=== PATIENT | female | born 1935 | race Caucasian/White ===

== ENCOUNTER 2017-01-09 18:08 | Observation (INO) ==
--- NOTE | 2017-01-09 18:49 | Emergency Department Note ---
Disposition Clinical Impression: UTI (urinary tract infection), Dysuria, Hypokalemia, Gout Disposition: Admitted As Inpatient Condition: Fair Time of Disposition: 00:44 ([facility]) Fever HPI - General Chief Complaint: ED Fever Stated Complaint: fever, poor appetite, body aches Time Seen by Provider: 01/09/17 18:27 Source: patient Mode of arrival: ambulatory Limitations: no limitations Nursing Notes Reviewed: Yes Vital Signs Reviewed: Yes - History of Present Illness HPI Narrative: 81-year-old female presenting to the emergency room with a multitude of complaints one being right arm pain says she is not sure what is numb tingling denies that it anything she does makes it better if condition is worse patient has any weakness patient states that she has had no swelling or edema patient states that she has had no history of gout in the arm but she has had a history of gout previously [place] patient's complaining of burning urgency frequency patient is complaining of generalized [place] fever chills aches all over no energy charley horses denies though numbness tingling she has had some vomiting she has had no additional complaints of complete review of systems Pt Subjective Complaint: fever, weakness Onset (ago): day(s) Maximum Temperature Reported: 102 F Temperature Source: oral Associated symptoms: Reports: abdominal pain, nausea, vomiting, dysuria, altered mental status. Denies: chills, rigors, myalgias, headache, rhinorrhea, nasal congestion, sore throat, stiff neck, cough, chest pain, dyspnea, diarrhea , rash, night sweats, weight loss Improves with: nothing Worsens with: nothing - Related Data Home Medications Medication Instructions Recorded Confirmed Levothyroxine [Synthroid] 75 mcg PO DAILY 01/29/15 01/09/17 Omeprazole [PriLOSEC] 20 mg PO DAILY 01/29/15 01/09/17 Potassium Chloride 10 meq PO DAILY 01/29/15 01/09/17 amLODIPine [Norvasc] 5 mg PO DAILY 12/07/15 01/09/17 Loratadine [Claritin] 10 mg PO DAILY 07/19/16 01/09/17 Metoprolol XL (24 HR) Succ [Toprol 50 mg PO DAILY 07/19/16 01/09/17 Xl] Budesonide/Formoterol 160/4.5 2 puff IH BID 09/17/16 01/09/17 [Symbicort 160/4.5] Bumetanide [Bumex] 0.5 mg PO DAILY 09/17/16 01/09/17 Oxygen 2 l .ROUTE AD 09/17/16 01/09/17 Previous Rx's Medication Instructions Recorded Colchicine [Colcrys] 0.6 mg PO BID #60 tablet 09/20/16 Cyclobenzaprine HCl 5 mg PO BID PRN #30 tablet 10/18/16 Acetaminophen w/Cod 300-30 mg 1 tab PO Q6HR PRN #56 tablet 12/05/16 [Tylenol w/Codeine #3] predniSONE [PredniSONE] 5 mg PO DAILY #30 tablet 12/05/16 Allergies Allergy/AdvReac Type Severity Reaction Status Date / Time hydrocodone Allergy Mild Nausea Verified 01/09/17 18:10 Oxycodone Allergy Mild Nausea Verified 01/09/17 18:10 Sulfa (Sulfonamide Allergy Mild Hives Verified 01/09/17 18:10 Antibiotics) aspirin AdvReac See Verified 01/09/17 18:10 Comments All systems ED: reviewed and negative except as stated. Review of Systems: As Per HPI Constitutional: Reports: fever, chills, weakness Eyes: Denies: eye pain, eye discharge ENT ED: Denies: ear pain, dysphagia Cardiovascular: Reports: syncope (near). Denies: chest pain, palpitations, dyspnea on exertion Respiratory: Denies: cough, dyspnea, wheezes Gastrointestinal: Reports: nausea, vomiting. Denies: abdominal pain, diarrhea, constipation Genitourinary: Reports: urgency, dysuria, genital lesions Musculoskeletal: Denies: back pain, neck pain Integumentary: Denies: rash, abrasion Neurological: Reports: weakness, numbness (rue). Denies: headache Psychiatric: Denies: anxiety, depression Endocrine: Reports: fatigue Hematological/Lymphatic: Denies: easy bleeding Allergic/Immunologic: Denies: facial swelling Fever PMH - Past Medical History Medical history: Reports: arthritis, atrial fibrillation, CHF, COPD, coronary artery disease, GERD, hypertension, kidney stones, osteoporosis, thyroid disease Surgical history: Reports: angioplasty/stent, cholecystectomy, hysterectomy, other Psychiatric history: Reports: no psych history - Social History Smoking Status: Former smoker Alcohol use: Reports: none Drug use: Reports: none Physical Exam - General Limitations: no limitations General appearance: alert, in no apparent distress, anxious - Head Head exam: atraumatic, normocephalic, normal inspection - Eye Eye exam: Present: normal appearance, PERRL, EOMI - ENT ENT exam: normal exam, normal oropharynx, mucous membranes moist, TM's normal bilaterally, normal external ear exam - Neck Neck exam: Present: normal inspection, full ROM, trachea midline - Chest Chest inspection: Present: normal inspection, symmetric chest wall rise - Respiratory Respiratory exam: Present: normal lung sounds bilaterally - Cardiovascular Cardiovascular exam: Present: regular rate, normal rhythm, normal heart sounds - Abdominal Exam Abdominal exam: Present: soft, Non-Tender, normal bowel sounds. Absent: mass, pulsatile mass - Expanded Upper Extremity Exam Shoulder exam: Present: normal inspection, full ROM Arm exam: Present: normal inspection, full ROM Elbow exam: Present: normal inspection, full ROM Forearm/Wrist exam: Present: normal inspection, full ROM Hand exam: Present: normal inspection, full ROM Vascular exam: Normal: capillary refill, radial pulse - Expanded Lower Extremity Exam Hip/Pelvis exam: Present: normal inspection, full ROM, other (Full range of motion of the right shoulder and biceps triceps region but no crepitance there is no deformity no grinding noted) Upper leg exam: Present: normal inspection, full ROM Knee exam: Present: normal inspection, full ROM Lower leg exam: Present: normal inspection, full ROM Ankle exam: Present: normal inspection, full ROM Foot/toe exam: Present: normal inspection, full ROM Neurovascular/Tendon exam: Absent: motor deficit, sensory deficit, tendon deficit Course Course Narrative: Seen and examined laboratory data started x-rays and urinalysis obtained patient is been advised of signs and symptoms what were looking for once results are back we will go from there [place] patient is resting comfortably at this time - Reevaluation(s) Reevaluation #1: The patient's labs she does have an elevated lactic acid but she is not showing any end organ damage or in some respiratory failure greater increasing creatinine are platelet counts though the patient does have elevated temp and Sirs criteria 1 Sirs and 1 organ dysfunction based on the lactic acid itself patient was not showing any evidence of septic shock though blood cultures and antibodies were started and she was given 30 ML's per kilo of normal saline and a repeat act lactic acid level was performed within 6 hours from the original A she was admitted as a result of the urine and urinary tract infection and the hypokalemia transferred to [facility] Vital Signs Temperature 101 F H 01/09/17 18:11 Pulse Rate 85 01/09/17 18:11 Respiratory Rate 18 01/09/17 18:11 Blood Pressure 152/93 01/09/17 18:11 O2 Sat by Pulse Oximetry 96 01/09/17 18:11 Temperature 97.0 F L 01/09/17 23:55 Pulse Rate 84 01/09/17 23:11 Respiratory Rate 19 01/10/17 00:15 Blood Pressure 0/0 01/10/17 00:15 O2 Sat by Pulse Oximetry 96 01/09/17 23:11 Oxygen Delivery Oxygen Delivery Room Air Fever - Differential Diagnosis Likely: fever of occult origin, community acquired pneumonia, viral infection, sepsis - Medical Records Medical records reviewed: Yes I reviewed the patient's medical records. - Lab Data Lab results reviewed: Yes I reviewed the patient's lab results. Result diagrams: 01/09/17 18:50 01/09/17 18:50 Lab Results 01/09/17 01/09/17 01/09/17 Range/Units 18:50 18:50 18:50 WBC 10.8 (4.3-11.1) K/mcL RBC 5.50 H (3.82-4.97) M/mcL Hgb 16.4 H (11.5-15.4) g/dL Hct 46.5 H (35.3-44.9) % MCV 84.5 (83.0-100.0) fL MCH 29.8 (28.0-33.3) pg MCHC 35.3 (31.6-35.5) g/dL RDW 13.8 (11.5-14.5) % Plt Count 121 L (140-400) K/mcL MPV 13.9 H (9.4-12.4) fL Immature Gran % 0.3 (0-4) % Seg Neutrophils % 71.2 % Lymphocytes % 17.2 % Monocytes % 9.9 % Eosinophils % 0.5 % Basophils % 0.9 % Neutrophils # 7.7 (1.6-8.9) K/mcL Lymphocytes # 1.9 (0.6-4.6) K/mcL Monocytes # 1.1 (0.0-1.3) K/mcL Eosinophils # 0.1 (0.0-0.6) K/mcL Basophils # 0.1 (0.0-0.2) K/mcL PT 13.3 H (9.4-12.1) Seconds INR 1.2 APTT 30.0 (26.0-36.0) Seconds VBG Lactic Acid (0.5-2.2) mmol/L Sodium 142 (136-145) mEq/L Potassium 2.5 L* (3.5-4.5) mEq/L Chloride 100 (98-109) mEq/L Carbon Dioxide 25 (19-29) mEq/L BUN 17 (7-20) mg/dL Creatinine 0.93 (0.57-1.11) mg/dL Est GFR ( Amer) > 60 (> 60) Est GFR (Non-Af Amer) 58 L (> 60) BUN/Creatinine Ratio 18 (6-26) Glucose 126 H (70-99) mg/dL Calculated Osmolality 297 (280-300) Uric Acid (2.6-6.0) mg/dL Calcium 10.8 (8.6-10.8) mg/dL Total Bilirubin 1.7 H (0.2-1.2) mg/dL AST 30 (5-34) Units/L ALT 21 (0-55) Units/L Alkaline Phosphatase 111 (38-126) Units/L Troponin I (0-0.03) ng/mL Serum Total Protein 7.8 (6.0-8.3) g/dL Albumin 4.3 (3.5-5.0) g/dL Globulin 3.5 (2.4-3.5) g/dL Albumin/Globulin Ratio 1.2 (1.1-2.2) Urine Color (Yellow) Urine Clarity (Clear) Urine pH (5.0-8.0) pH Units Ur Specific Sherman (1.010-1.025) Urine Protein (Neg-Trace) mg/dL Urine Glucose (UA) (Normal) mg/dL Urine Ketones (Negative) mg/dL Urine Blood (Negative) Urine Nitrite (Negative) Urine Bilirubin (Negative) Urine Urobilinogen (Normal) mg/dL Ur Leukocyte Esterase (Negative) Urine Microscopic WBC (0-3) per hpf Ur Squamous Epith Cells (None-Few) per lpf Ur Culture Indicated? (NO) 01/09/17 01/09/17 01/09/17 Range/Units 18:50 18:50 18:50 WBC (4.3-11.1) K/mcL RBC (3.82-4.97) M/mcL Hgb (11.5-15.4) g/dL Hct (35.3-44.9) % MCV (83.0-100.0) fL MCH (28.0-33.3) pg MCHC (31.6-35.5) g/dL RDW (11.5-14.5) % Plt Count (140-400) K/mcL MPV (9.4-12.4) fL Immature Gran % (0-4) % Seg Neutrophils % % Lymphocytes % % Monocytes % % Eosinophils % % Basophils % % Neutrophils # (1.6-8.9) K/mcL Lymphocytes # (0.6-4.6) K/mcL Monocytes # (0.0-1.3) K/mcL Eosinophils # (0.0-0.6) K/mcL Basophils # (0.0-0.2) K/mcL PT (9.4-12.1) Seconds INR APTT (26.0-36.0) Seconds VBG Lactic Acid 2.9 H (0.5-2.2) mmol/L Sodium (136-145) mEq/L Potassium (3.5-4.5) mEq/L Chloride (98-109) mEq/L Carbon Dioxide (19-29) mEq/L BUN (7-20) mg/dL Creatinine (0.57-1.11) mg/dL Est GFR ( Amer) (> 60) Est GFR (Non-Af Amer) (> 60) BUN/Creatinine Ratio (6-26) Glucose (70-99) mg/dL Calculated Osmolality (280-300) Uric Acid 10.1 H (2.6-6.0) mg/dL Calcium (8.6-10.8) mg/dL Total Bilirubin (0.2-1.2) mg/dL AST (5-34) Units/L ALT (0-55) Units/L Alkaline Phosphatase (38-126) Units/L Troponin I 0.01 (0-0.03) ng/mL Serum Total Protein (6.0-8.3) g/dL Albumin (3.5-5.0) g/dL Globulin (2.4-3.5) g/dL Albumin/Globulin Ratio (1.1-2.2) Urine Color (Yellow) Urine Clarity (Clear) Urine pH (5.0-8.0) pH Units Ur Specific Sherman (1.010-1.025) Urine Protein (Neg-Trace) mg/dL Urine Glucose (UA) (Normal) mg/dL Urine Ketones (Negative) mg/dL Urine Blood (Negative) Urine Nitrite (Negative) Urine Bilirubin (Negative) Urine Urobilinogen (Normal) mg/dL Ur Leukocyte Esterase (Negative) Urine Microscopic WBC (0-3) per hpf Ur Squamous Epith Cells (None-Few) per lpf Ur Culture Indicated? (NO) 01/09/17 01/09/17 Range/Units 22:00 23:56 WBC (4.3-11.1) K/mcL RBC (3.82-4.97) M/mcL Hgb (11.5-15.4) g/dL Hct (35.3-44.9) % MCV (83.0-100.0) fL MCH (28.0-33.3) pg MCHC (31.6-35.5) g/dL RDW (11.5-14.5) % Plt Count (140-400) K/mcL MPV (9.4-12.4) fL Immature Gran % (0-4) % Seg Neutrophils % % Lymphocytes % % Monocytes % % Eosinophils % % Basophils % % Neutrophils # (1.6-8.9) K/mcL Lymphocytes # (0.6-4.6) K/mcL Monocytes # (0.0-1.3) K/mcL Eosinophils # (0.0-0.6) K/mcL Basophils # (0.0-0.2) K/mcL PT (9.4-12.1) Seconds INR APTT (26.0-36.0) Seconds VBG Lactic Acid 1.5 (0.5-2.2) mmol/L Sodium (136-145) mEq/L Potassium (3.5-4.5) mEq/L Chloride (98-109) mEq/L Carbon Dioxide (19-29) mEq/L BUN (7-20) mg/dL Creatinine (0.57-1.11) mg/dL Est GFR ( Amer) (> 60) Est GFR (Non-Af Amer) (> 60) BUN/Creatinine Ratio (6-26) Glucose (70-99) mg/dL Calculated Osmolality (280-300) Uric Acid (2.6-6.0) mg/dL Calcium (8.6-10.8) mg/dL Total Bilirubin (0.2-1.2) mg/dL AST (5-34) Units/L ALT (0-55) Units/L Alkaline Phosphatase (38-126) Units/L Troponin I (0-0.03) ng/mL Serum Total Protein (6.0-8.3) g/dL Albumin (3.5-5.0) g/dL Globulin (2.4-3.5) g/dL Albumin/Globulin Ratio (1.1-2.2) Urine Color Yellow (Yellow) Urine Clarity Clear (Clear) Urine pH 5.5 (5.0-8.0) pH Units Ur Specific Sherman 1.020 (1.010-1.025) Urine Protein 100 H (Neg-Trace) mg/dL Urine Glucose (UA) Normal (Normal) mg/dL Urine Ketones Negative (Negative) mg/dL Urine Blood Trace-lysed H (Negative) Urine Nitrite Negative (Negative) Urine Bilirubin Negative (Negative) Urine Urobilinogen Normal (Normal) mg/dL Ur Leukocyte Esterase Small H (Negative) Urine Microscopic WBC 30-50 H (0-3) per hpf Ur Squamous Epith Cells Few (None-Few) per lpf Ur Culture Indicated? YES A (NO) - Radiology Data Radiology results reviewed: Yes I reviewed the patient's radiology results. ITS Impressions Chest X-Ray 01/09/17 18:38 IMPRESSION: No acute process. D/ / Lucas Sinclair MD / Lucas Sinclair MD Interpreting Provider: Lucas Sinclair MD - EKG Data EKG attestation: Yes I reviewed and interpreted this EKG. EKG results narrative: Paced rate 80 for IN-2 22 QRS 185 QT 461 excess -71 Critical Care Time Critical Care Time: Yes Total Critical Care Time: 35 Attestation: Critical care performed: V5 minutes as result of the patient having the hypokalemia and also the patient showing borderline sepsis not evidence of septic shock patient resting comfortably with IV fluids daughter are in agreement with the patient being maintained to have potassium supplementation as well as IV antibiotics to prevent further potential presentation of sepsis Time is exclusive of separately billable procedures. Time includes: direct patient care, patient reassessment, coordination of patient care, interpretation of data (laboratory data, radiology data, and respiratory data), review of patient's medical records, medical consultation and documentation of patient care. Procedures included in critical care time: Procedures excluded from critical care time:
[2017-01-09 19:33] LABS: Basophils # 0.1 K/mcL (0.0-0.2); Basophils % 0.9 %; Eosinophils # 0.1 K/mcL (0.0-0.6); Eosinophils % 0.5 %; Hematocrit 46.5 % (35.3-44.9); Hemoglobin 16.4 g/dL (11.5-15.4); INR 1.2; Immature Granulocytes % 0.3 % (0-4); Lymphocytes # 1.9 K/mcL (0.6-4.6); Lymphocytes % 17.2 %; Mean Corpuscular HGB Conc 35.3 g/dL (31.6-35.5); Mean Corpuscular Hemoglobin 29.8 pg (28.0-33.3); Mean Corpuscular Volume 84.5 fL (83.0-100.0); Mean Platelet Volume 13.9 fL (9.4-12.4); Monocytes # 1.1 K/mcL (0.0-1.3); Monocytes % 9.9 %; Neutrophils # 7.7 K/mcL (1.6-8.9); Platelet Count 121 K/mcL (140-400); Prothrombin Time 13.3 Seconds (9.4-12.1); Red Cell Distribution Width 13.8 % (11.5-14.5); Segmented Neutrophils % 71.2 %
[2017-01-09 19:44] LABS: Alanine Aminotransferase 21 Units/L (0-55); Albumin 4.3 g/dL (3.5-5.0); Albumin/Globulin Ratio 1.2 (1.1-2.2); Alkaline Phosphatase 111 Units/L (38-126); Aspartate Amino Transferase 30 Units/L (5-34); BUN/Creatinine Ratio 18 (6-26); Bilirubin,Total 1.7 mg/dL (0.2-1.2); Blood Urea Nitrogen 17 mg/dL (7-20); Calcium 10.8 mg/dL (8.6-10.8); Carbon Dioxide 25 mEq/L (19-29); Chloride 100 mEq/L (98-109); Globulin 3.5 g/dL (2.4-3.5); Glucose 126 mg/dL (70-99); Osmolality,Calculated 297 (280-300); Sodium 142 mEq/L (136-145); Total Protein 7.8 g/dL (6.0-8.3); eGFR For African Americans > 60 (> 60); eGFR For Non-African Americans 58 (> 60)
[2017-01-09 19:48] LABS: Potassium 2.5 mEq/L (3.5-4.5)
[2017-01-09] MEDS ORDERED: 0.9 % Sodium Chloride 1,000 ML IVC ONE ×2 (20:20→20:49)
[2017-01-09 22:34] LABS: Bilirubin,Urine Negative (Negative); Blood,Urine Trace-lysed (Negative); Clarity,Urine Clear (Clear); Color,Urine Yellow (Yellow); Glucose,Urine (UA) Normal (Normal); Ketones,Urine Negative (Negative); Leukocyte Esterase,Urine Small (Negative); Nitrite,Urine Negative (Negative); PH,Urine 5.5 pH Units (5.0-8.0); Protein,Urine 100 mg/dL (Neg-Trace); Urobilinogen,Urine Normal (Normal)
[2017-01-09 22:41] LABS: Squamous Epithelial Cell,Urine Few per lpf (None-Few); WBC,Urine 30-50 per hpf (0-3)
[2017-01-10] MEDS ORDERED: NON-FORMULARY MEDICATION 1 EACH EACH (Oxygen [Oxygen] 2 L) SCH (00:29)
[2017-01-10] MEDS ORDERED: Naloxone 0.4 MG/ML INJ IVP PRN (00:29)
[2017-01-10] MEDS ORDERED: *HR* Acetaminophen w/Cod 300-30 mg 1 TAB TABLET PO PRN (00:29)
[2017-01-10 07:28] LABS: Basophils # 0.1 K/mcL (0.0-0.2); Basophils % 1.1 %; Eosinophils # 0.1 K/mcL (0.0-0.6); Eosinophils % 1.1 %; Hematocrit 41.9 % (35.3-44.9); Hemoglobin 14.7 g/dL (11.5-15.4); Immature Granulocytes % 0.2 % (0-4); Lymphocytes # 2.1 K/mcL (0.6-4.6); Lymphocytes % 32.6 %; Mean Corpuscular HGB Conc 35.1 g/dL (31.6-35.5); Mean Corpuscular Hemoglobin 29.7 pg (28.0-33.3); Mean Corpuscular Volume 84.6 fL (83.0-100.0); Mean Platelet Volume 12.6 fL (9.4-12.4); Monocytes # 0.7 K/mcL (0.0-1.3); Monocytes % 10.7 %; Neutrophils # 3.4 K/mcL (1.6-8.9); Red Blood Count 4.95 M/mcL (3.82-4.97); Red Cell Distribution Width 13.7 % (11.5-14.5); Segmented Neutrophils % 54.3 %
[2017-01-10 07:33] LABS: Platelet Count 81 K/mcL (140-400)
[2017-01-10 07:34] LABS: BUN/Creatinine Ratio 15 (6-26); Blood Urea Nitrogen 10 mg/dL (7-20); Calcium 9.5 mg/dL (8.6-10.8); Carbon Dioxide 24 mEq/L (19-29); Chloride 104 mEq/L (98-109); Glucose 103 mg/dL (70-99); Osmolality,Calculated 293 (280-300); Potassium 2.8 mEq/L (3.5-4.5); Sodium 142 mEq/L (136-145); eGFR For African Americans > 60 (> 60); eGFR For Non-African Americans > 60 (> 60)
[2017-01-10 07:50] LABS: Activated Partial Thrombo Time 29.1 Seconds (26.0-36.0)
[2017-01-10 08:23] LABS: INR 1.3
[2017-01-10] MEDS: predniSONE 5 MG TABLET PO SCH ×2 (08:27→08:28)
[2017-01-10] MEDS: Colchicine 0.6 MG TABLET PO SCH ×2 (08:27→21:07)
[2017-01-10] MEDS: Loratadine 10 MG TABLET PO SCH (08:27)
[2017-01-10] MEDS: Metoprolol XL (24 HR) Succ 50 MG TAB.ER.24H PO SCH (08:29)
[2017-01-10] MEDS ORDERED: Bumetanide 1 MG TABLET PO SCH (09:00)
[2017-01-10] MEDS: amLODIPine 5 MG TABLET PO SCH (10:10)
[2017-01-10] MEDS ORDERED: Potassium Chloride 20 MEQ, Lidocaine 1% 2 ML in D5% in Water 250 ML IVPB ONE (10:16)
[2017-01-10] MEDS: Budesonide/Formoterol 160/4.5 MDI IH SCH ×2 (10:47→22:27)
--- NOTE | 2017-01-10 14:05 | Electrocardiograph Report ---
[address] [address] Test Date: 2017-01-09 Pat Name: Minal Deleon Department: [id number] Room: [facility] Gender: F [employer]: [id number] : 1935 Requested By: Carina Cohen Order Number: [id number] Reading MD: Dickson Castro MD Measurements Intervals [place] Rate: 84 P: 164 AR: 222 QRS: -71 QRSD: 185 T: 105 QT: 461 QTc: 502 Interpretive Statements ELECTRONIC VENTRICULAR PACEMAKER Electronically Signed On 01-10-2017 14:03:29 EDT by Dickson Castro MD
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
[2017-01-10 16:33] LABS: BUN/Creatinine Ratio 15 (6-26); Blood Urea Nitrogen 12 mg/dL (7-20); Calcium 9.9 mg/dL (8.6-10.8); Carbon Dioxide 23 mEq/L (19-29); Chloride 104 mEq/L (98-109); Glucose 118 mg/dL (70-99); Magnesium 1.7 mg/dL (1.6-2.6); Osmolality,Calculated 291 (280-300); Potassium 3.3 mEq/L (3.5-4.5); Sodium 140 mEq/L (136-145); eGFR For African Americans > 60 (> 60); eGFR For Non-African Americans > 60 (> 60)
[2017-01-10] MEDS: 0.45 % Sodium Chloride w/KCl 20 MEQ/1,000 ML MLS IVC SCH (18:20)
[2017-01-10] MEDS: Lactobacillus 1 EACH CAP.SPRINK PO SCH (21:07)
[2017-01-11] MEDS: 0.45 % Sodium Chloride w/KCl 20 MEQ/1,000 ML MLS IVC SCH (03:05)
[2017-01-11 06:16] LABS: Basophils # 0.1 K/mcL (0.0-0.2); Basophils % 1.3 %; Eosinophils # 0.1 K/mcL (0.0-0.6); Eosinophils % 1.6 %; Hematocrit 41.7 % (35.3-44.9); Hemoglobin 14.3 g/dL (11.5-15.4); Immature Granulocytes % 0.3 % (0-4); Lymphocytes # 2.3 K/mcL (0.6-4.6); Lymphocytes % 30.1 %; Mean Corpuscular HGB Conc 34.3 g/dL (31.6-35.5); Mean Corpuscular Hemoglobin 29.4 pg (28.0-33.3); Mean Corpuscular Volume 85.8 fL (83.0-100.0); Mean Platelet Volume 12.7 fL (9.4-12.4); Monocytes # 0.8 K/mcL (0.0-1.3); Neutrophils # 4.4 K/mcL (1.6-8.9); Platelet Count 107 K/mcL (140-400); Red Blood Count 4.86 M/mcL (3.82-4.97); Red Cell Distribution Width 13.9 % (11.5-14.5); Segmented Neutrophils % 56.7 %
[2017-01-11 06:35] LABS: BUN/Creatinine Ratio 15 (6-26); Blood Urea Nitrogen 11 mg/dL (7-20); Calcium 9.7 mg/dL (8.6-10.8); Carbon Dioxide 22 mEq/L (19-29); Chloride 106 mEq/L (98-109); Glucose 116 mg/dL (70-99); Osmolality,Calculated 292 (280-300); Phosphorous 2.5 mg/dL (2.3-4.7); Potassium 3.4 mEq/L (3.5-4.5); Sodium 141 mEq/L (136-145); Uric Acid 7.6 mg/dL (2.6-6.0); eGFR For African Americans > 60 (> 60); eGFR For Non-African Americans > 60 (> 60)
[2017-01-11] MEDS: amLODIPine 5 MG TABLET PO SCH (09:05)
[2017-01-11] MEDS: predniSONE 5 MG TABLET PO SCH (09:06)
[2017-01-11] MEDS: Colchicine 0.6 MG TABLET PO SCH (09:06)
[2017-01-11] MEDS: Loratadine 10 MG TABLET PO SCH (09:06)
[2017-01-11] MEDS: Lactobacillus 1 EACH CAP.SPRINK PO SCH (09:06)
[2017-01-11] MEDS: Metoprolol XL (24 HR) Succ 50 MG TAB.ER.24H PO SCH (09:12)
--- NOTE | 2017-01-11 09:34 | Discharge Summary ---
Date of Encounter: 01/11/17 Time of Encounter: 09:25 - Discharge Diagnosis (1) Vomiting and diarrhea Priority: Primary Status: Acute (2) Hypokalemia Priority: Secondary Status: Acute (3) Gout Priority: Secondary Status: Chronic Qualifiers: Gout site: unspecified site Gout etiology: unspecified cause Chronicity: chronic Presence of tophus: without tophus Qualified Code(s): M1A.9XX0 - Chronic gout, unspecified, without tophus (tophi) (4) UTI (urinary tract infection) Priority: Secondary Status: Acute Qualifiers: Urinary tract infection type: site unspecified Hematuria presence: with hematuria Qualified Code(s): N39.0 - Urinary tract infection, site not specified; R31.9 - Hematuria, unspecified - Discharge Medications Prescriptions: Cefuroxime PO [Ceftin] 500 mg PO Q12HR #2 tablet Lactobacillus [Culturelle] 1 each PO BID #2 cap.sprink Home Medications: Levothyroxine [Synthroid] 75 mcg PO DAILY 01/29/15 [History] Omeprazole [PriLOSEC] 20 mg PO DAILY 01/29/15 [History] Potassium Chloride 10 meq PO DAILY 01/29/15 [History] amLODIPine [Norvasc] 5 mg PO DAILY 12/07/15 [History] Metoprolol XL (24 HR) Succ [Toprol Xl] 50 mg PO DAILY 07/19/16 [History] Budesonide/Formoterol 160/4.5 [Symbicort 160/4.5] 2 puff IH BID 09/17/16 [ History] Oxygen 2 l .ROUTE AD 09/17/16 [History] Colchicine [Colcrys] 0.6 mg PO BID #60 tablet 09/20/16 [Rx] Cyclobenzaprine HCl 5 mg PO BID PRN #30 tablet 10/18/16 [Rx] Acetaminophen w/Cod 300-30 mg [Tylenol w/Codeine #3] 1 tab PO Q6HR PRN #56 tablet 12/05/16 [Rx] predniSONE [PredniSONE] 5 mg PO DAILY #30 tablet 12/05/16 [Rx] Bumetanide [Bumex] 0.5 mg PO Q48H #0 01/11/17 [Rx] Cefuroxime PO [Ceftin] 500 mg PO Q12HR #2 tablet 01/11/17 [Rx] Lactobacillus [Culturelle] 1 each PO BID #2 cap.sprink 01/11/17 [Rx] Loratadine [Claritin] 10 mg PO DAILY PRN #0 01/11/17 [Rx] Allergies/Adverse Reactions: Allergies hydrocodone Allergy (Mild, Verified 01/09/17 18:10) Nausea Oxycodone Allergy (Mild, Verified 01/09/17 18:10) Nausea Sulfa (Sulfonamide Antibiotics) Allergy (Mild, Verified 01/09/17 18:10) Hives aspirin Adverse Reaction (Verified 01/09/17 18:10) See Comments due to her "blood cells" Date of admission: 01/09/17 23:44 Primary care physician: Casey Ash DO Consults: 01/10/17 00:57 Consult to Nutrition [CONS] Routine Comment: Consulting Provider: NUTRITION Reason for Dietary Consult: MST Score - Patient Status Disposition: Home, Self-Care Condition: Fair Functional capacity at discharge: independent ambulation Overall status at discharge: patient is progressing back to baseline - Discharge Instructions Follow Up With: Casey Ash DO [Primary Care Provider] - - Diet and Activity Activity: resume usual activities as tolerated Diet: advance to your usual diet Hospital course: Ms. Deleon is a 81 year old female who came to the emergency room stating she had onset of diarrhea with weakness approximately 3 weeks ago. She later developed nausea with occasional dry heaves. The nausea became more severe the day of admission so she decided come to emergency room for evaluation. She was found to have hypokalemia and probable UTI. She was admitted to [facility] floor for ongoing care needs. Initial orders were written by the emergency room physician. I saw her on January 10 and performed a history and physical. She was started empirically on Rocephin for UTI. She remained afebrile after the first hospital day. WBC decreased to 7.7 with no left shift by the day of discharge. She will continue with Ceftin and Lactobacillus for 1 additional day upon discharge. Supplemental potassium was given and potassium level improved to 3.4 on the day of discharge. She will decrease Bumex to 0.5 mg every other day and continue KCl 10 mg daily upon discharge. Her creatinine decreased to 0.73 with estimated GFR greater than 60. She will decrease Bumex dose as per above. Uric acid decreased from 10.1 on the emergency room labs to 7.6 on January 11. I will let her PCP further monitor this and adjust dose of medications as needed. On January 11 she felt improved and stable for discharge home. She will follow with her PCP Dr. Ash within 1 week. - Time Spent with Patient Total time spent providing and/or coordinating discharge services: - Constitutional Vitals: Temp Pulse Resp BP Pulse Ox 98.0 F 88 16 115/54 96 01/10/17 23:10 01/10/17 23:10 01/10/17 23:10 01/10/17 23:10 01/10/17 23:10
[2017-01-11 10:08] VITALS: BP 132/73
[2017-01-11] MEDS: Budesonide/Formoterol 160/4.5 MDI IH SCH (10:22)
== END 2017-01-11 10:41 | disposition home or self-care (01) ==
LOC: INPPIK 18:08 → EMEROOPIK 18:08 → INPPIK 01-10 00:36
PROVIDERS: ADMIT Internal Medicine; ATTEND Internal Medicine

== ENCOUNTER 2017-09-07 12:04 | Observation (INO) ==
--- NOTE | 2017-09-07 12:09 | Emergency Department Note ---
Disposition Clinical Impression: COPD exacerbation, Bronchitis Disposition: Admitted As Inpatient Condition: Fair Referrals: Casey Ash DO [Primary Care Provider] - Forms: ED Satisfaction Letter Time of Disposition: 14:08 SOB HPI - General Chief Complaint: ED Upper Respiratory Infection Stated Complaint: COUGH, FEVER, CHEST SORENESS Time Seen by Provider: 09/07/17 12:09 Source: patient, family Mode of arrival: ambulatory Limitations: no limitations Nursing Notes Reviewed: Yes Vital Signs Reviewed: Yes - History of Present Illness This is an 82-year-old female who presents today with stating she does not feel off the last 5 days. She has had a cough runny nose fever and chest tightness. She states that she does have a history of COPD but does not use her inhalers or her oxygen like she is supposed to. She states she does not vaccinated against the flu or pneumonia. She states that she feels like she is just getting worse at home and so she came in today for evaluation. Pt Subjective Complaint: shortness of breath, cough - Related Data Home Medications Medication Instructions Recorded Confirmed Levothyroxine [Synthroid] 75 mcg PO DAILY 01/29/15 09/07/17 Omeprazole [PriLOSEC] 20 mg PO DAILY PRN 01/29/15 09/07/17 Potassium Chloride 10 meq PO BID 01/29/15 09/07/17 amLODIPine [Norvasc] 10 mg PO DAILY 12/07/15 09/07/17 Metoprolol XL (24 HR) Succ [Toprol 50 mg PO BID 07/19/16 09/07/17 Xl] Budesonide/Formoterol 160/4.5 2 puff IH BID 09/17/16 09/07/17 [Symbicort 160/4.5] Oxygen 2 l .ROUTE AD 09/17/16 09/07/17 Previous Rx's Medication Instructions Recorded Cyclobenzaprine HCl 5 mg PO BID PRN #30 tablet 10/18/16 Acetaminophen w/Cod 300-30 mg 1 tab PO Q6HR PRN #56 tablet 12/05/16 [Tylenol w/Codeine #3] Bumetanide [Bumex] 0.5 mg PO Q48H #0 01/11/17 Loratadine [Claritin] 10 mg PO DAILY PRN #0 01/11/17 Febuxostat [Uloric] 40 mg PO DAILY #30 10/17/17 Eltrombopag Olamine [Promacta] 50 mg PO DAILY #30 tablet 08/03/17 Allergies Allergy/AdvReac Type Severity Reaction Status Date / Time hydrocodone Allergy Mild Nausea Verified 09/07/17 12:05 Oxycodone Allergy Mild Nausea Verified 09/07/17 12:05 Sulfa (Sulfonamide Allergy Mild Hives Verified 09/07/17 12:05 Antibiotics) aspirin AdvReac See Verified 09/07/17 12:05 Comments Review of Systems: ROS reviewed and negative except as per HPI Chart generated with voice recognition software Nursing notes reviewed Old records reviewed Past Medical History - Past Medical History Attestation: Yes The following information was validated with the patient. Source: patient Medical history: Reports: arthritis, atrial fibrillation, CHF, COPD, coronary artery disease, GERD, hypertension, kidney stones, osteoporosis, thyroid disease Surgical history: Reports: angioplasty/stent, cholecystectomy, hysterectomy, other Psychiatric history: Reports: no psych history - Social History Smoking Status: Former smoker Smokeless Tobacco Status: No Alcohol use: Reports: none Drug use: Reports: none Physical Exam General: Mild distress VSS Head: normocephalic, atraumatic Eyes: EOMI, PERRLA mouth: Dry mucous membranes Neck: NO CLA, Supple Chest wall: normal rise, no crepitus, no deformity noted Lungs: Diminished coarse breath sounds bilaterally Heart: RRR, no murmur Abd: soft, nontender, BS normal : deferred MSK: strength equal in all four extremities Ext: moves all four extremities, no obvious deformities Skin: cap refill normal, dry hot to touch neuro : CN2-12 grossly intact, A&Ox3 Psych: normal affect, not anxious Course Vital Signs Temperature 102.6 F H 09/07/17 12:19 Pulse Rate 91 09/07/17 12:19 Respiratory Rate 18 09/07/17 12:19 Blood Pressure 130/84 09/07/17 12:19 O2 Sat by Pulse Oximetry 91 09/07/17 12:19 Temperature 100.0 F H 09/07/17 14:34 Pulse Rate 83 09/07/17 14:34 Respiratory Rate 18 09/07/17 14:34 Blood Pressure 137/52 09/07/17 14:34 O2 Sat by Pulse Oximetry 93 03/23/18 14:34 Oxygen Delivery Oxygen Delivery Nasal Cannula Shortness of Breath/Dyspnea - [facility] Narrative Medical decision making narrative: After initial breathing treatments her lungs sounds improved, and the sense that I can hear more movement, however she continued to sound very coarse and now had some wheezing. Tumor doing nebs were ordered. Patient has a very congested sounding cough. X-ray does not show any definitive pneumonia patient has a COPD history and is very noncompliant at home. She is 91% on room air and when she starts coughing drops into the 80s. She is not 4 to nebs total Solu-Medrol and is requiring 2 L nasal cannula to be at 95% room on the 2 L. I think she would benefit from coming into the hospital. Her flu swab was negative. I talked to her about it she is comfortable coming in. Hospitalist paged for admission [phone] Ku for admission, orders placed. - Medical Records Medical records reviewed: Yes I reviewed the patient's medical records. - Lab Data Lab results reviewed: Yes I reviewed the patient's lab results. Result diagrams: 09/07/17 12:52 09/07/17 12:52 Lab Results 09/07/17 09/07/17 09/07/17 Range/Units 12:52 12:52 12:52 WBC 8.7 (4.3-11.1) K/mcL RBC 5.31 H (3.82-4.97) M/mcL Hgb 15.8 H (11.5-15.4) g/dL Hct 47.8 H (35.3-44.9) % MCV 90.0 (83.0-100.0) fL MCH 29.8 (28.0-33.3) pg MCHC 33.1 (31.6-35.5) g/dL RDW 13.5 (11.5-14.5) % Plt Count 177 (140-400) K/mcL MPV 11.3 (9.4-12.4) fL Immature Gran % 0.2 (0-4) % Seg Neutrophils % 58.0 % Lymphocytes % 26.7 % Monocytes % 14.3 % Eosinophils % 0.2 % Basophils % 0.6 % Neutrophils # 5.1 (1.6-8.9) K/mcL Lymphocytes # 2.3 (0.6-4.6) K/mcL Monocytes # 1.3 (0.0-1.3) K/mcL Eosinophils # 0.0 (0.0-0.6) K/mcL Basophils # 0.1 (0.0-0.2) K/mcL Sodium 140 (136-145) mEq/L Potassium 3.0 L (3.5-5.1) mEq/L Chloride 103 (98-107) mEq/L Carbon Dioxide 27 (23-29) mEq/L BUN 11 (8-23) mg/dL Creatinine 0.90 (0.60-1.20) mg/dL Est GFR ( Amer) > 60 (> 60) Est GFR (Non-Af Amer) > 60 (> 60) BUN/Creatinine Ratio 12 (6-26) Glucose 94 (70-105) mg/dL Calculated Osmolality 289 (280-300) Lactic Acid 1.9 (0.5-2.2) mmol/L Calcium 9.5 (8.6-10.3) mg/dL Magnesium (1.6-2.6) mg/dL 09/07/17 Range/Units 12:52 WBC (4.3-11.1) K/mcL RBC (3.82-4.97) M/mcL Hgb (11.5-15.4) g/dL Hct (35.3-44.9) % MCV (83.0-100.0) fL MCH (28.0-33.3) pg MCHC (31.6-35.5) g/dL RDW (11.5-14.5) % Plt Count (140-400) K/mcL MPV (9.4-12.4) fL Immature Gran % (0-4) % Seg Neutrophils % % Lymphocytes % % Monocytes % % Eosinophils % % Basophils % % Neutrophils # (1.6-8.9) K/mcL Lymphocytes # (0.6-4.6) K/mcL Monocytes # (0.0-1.3) K/mcL Eosinophils # (0.0-0.6) K/mcL Basophils # (0.0-0.2) K/mcL Sodium (136-145) mEq/L Potassium (3.5-5.1) mEq/L Chloride (98-107) mEq/L Carbon Dioxide (23-29) mEq/L BUN (8-23) mg/dL Creatinine (0.60-1.20) mg/dL Est GFR ( Amer) (> 60) Est GFR (Non-Af Amer) (> 60) BUN/Creatinine Ratio (6-26) Glucose (70-105) mg/dL Calculated Osmolality (280-300) Lactic Acid (0.5-2.2) mmol/L Calcium (8.6-10.3) mg/dL Magnesium 1.9 (1.6-2.6) mg/dL - Radiology Data Radiology results reviewed: Yes I reviewed the patient's radiology results. 09/07/2017 12:38 pm COMPARISON: 01/09/2017. HISTORY: ORDERING SYSTEM PROVIDED HISTORY: upper respiratory infection Initial evaluation. FINDINGS: Evaluation is limited due to marked lordotic positioning. The patient's chin obscures evaluation of the right lung apex. The cardiac silhouette is poorly evaluated. There appears to be prominence of the hilar regions bilaterally, which could be artifactual due to positioning. No focal consolidation is otherwise clearly identified. No pleural effusion or pneumothorax. XR/XR chest 1V portable IMPRESSION: 1. Limited evaluation due to patient lordotic positioning. 2. Mild prominence of the hilar regions bilaterally, which could be artifactual due to patient positioning. 3. Otherwise, no convincing acute pulmonary abnormality.
[2017-09-07] MEDS ORDERED: 0.9 % Sodium Chloride 1,000 ML IVC ONE (12:17)
[2017-09-07] MEDS ORDERED: Ipratropium/Albuterol Neb 3 ML IH ONE ×2 (12:17→13:22)
[2017-09-07 12:59] LABS: Basophils # 0.1 K/mcL (0.0-0.2); Basophils % 0.6 %; Eosinophils % 0.2 %; Hematocrit 47.8 % (35.3-44.9); Hemoglobin 15.8 g/dL (11.5-15.4); Immature Granulocytes % 0.2 % (0-4); Lymphocytes # 2.3 K/mcL (0.6-4.6); Lymphocytes % 26.7 %; Mean Corpuscular HGB Conc 33.1 g/dL (31.6-35.5); Mean Corpuscular Hemoglobin 29.8 pg (28.0-33.3); Mean Platelet Volume 11.3 fL (9.4-12.4); Monocytes # 1.3 K/mcL (0.0-1.3); Monocytes % 14.3 %; Neutrophils # 5.1 K/mcL (1.6-8.9); Platelet Count 177 K/mcL (140-400); Red Blood Count 5.31 M/mcL (3.82-4.97); Red Cell Distribution Width 13.5 % (11.5-14.5)
[2017-09-07 13:15] LABS: BUN/Creatinine Ratio 12 (6-26); Blood Urea Nitrogen 11 mg/dL (8-23); Calcium 9.5 mg/dL (8.6-10.3); Carbon Dioxide 27 mEq/L (23-29); Chloride 103 mEq/L (98-107); Glucose 94 mg/dL (70-105); Osmolality,Calculated 289 (280-300); Sodium 140 mEq/L (136-145); eGFR For African Americans > 60 (> 60); eGFR For Non-African Americans > 60 (> 60)
[2017-09-07] MEDS ORDERED: Ipratropium/Albuterol Neb 3 ML ONE ×2 (13:37→15:29)
[2017-09-07] MEDS ORDERED: Azithromycin 500 MG in D5% in Water 250 ML IVPB STA ×2 (14:08→15:29)
[2017-09-07] MEDS ORDERED: Loratadine 10 MG TABLET PO PRN ×2 (14:32→15:29)
[2017-09-07] MEDS ORDERED: *HR* Acetaminophen w/Cod 300-30 mg 1 TAB TABLET PO PRN ×2 (14:32→15:29)
[2017-09-07] MEDS ORDERED: NON-FORMULARY MEDICATION 1 EACH EACH (Oxygen [Oxygen] 2 L) SCH (14:45)
[2017-09-07] MEDS ORDERED: Bumetanide 1 MG TABLET PO SCH (14:45)
[2017-09-07] MEDS ORDERED: Naloxone 0.4 MG/ML INJ IVP PRN (15:29)
[2017-09-07] MEDS: Ipratropium/Albuterol Neb 3 ML IH SCH ×3 (16:34→20:18)
[2017-09-07] MEDS: Budesonide/Formoterol 160/4.5 MDI IH SCH (20:18)
[2017-09-07] MEDS: Metoprolol XL (24 HR) Succ 50 MG TAB.ER.24H PO SCH (20:57)
[2017-09-07] MEDS ORDERED: Metoprolol XL (24 HR) Succ 50 MG TAB.ER.24H PO SCH (21:00)
[2017-09-07] MEDS ORDERED: Budesonide/Formoterol 160/4.5 MDI IH SCH (22:00)
[2017-09-08] MEDS: Ipratropium/Albuterol Neb 3 ML IH SCH ×3 (00:04→09:33)
[2017-09-08 02:05] LABS: Bilirubin,Urine Negative (Negative); Blood,Urine Trace-intact (Negative); Clarity,Urine Clear (Clear); Color,Urine Yellow (Yellow); Glucose,Urine (UA) Normal (Normal); Ketones,Urine Negative (Negative); Leukocyte Esterase,Urine Negative (Negative); Nitrite,Urine Negative (Negative); Protein,Urine 30 mg/dL (Neg-Trace); Urobilinogen,Urine Normal (Normal)
[2017-09-08 02:32] LABS: Granular Casts,Urine Few per lpf (None Seen)
[2017-09-08 02:33] LABS: Hyaline Casts,Urine Few per lpf (None-Few); RBC,Urine 0-3 per hpf (0-3); Squamous Epithelial Cell,Urine Few per lpf (None-Few)
[2017-09-08 02:34] LABS: Bacteria,Urine Moderate per hpf (None-Few)
[2017-09-08 06:27] VITALS: BP 147/75
[2017-09-08 08:08] LABS: Basophils % 0.7 %; Eosinophils % 0.2 %; Hematocrit 42.3 % (35.3-44.9); Hemoglobin 14.1 g/dL (11.5-15.4); Immature Granulocytes % 0.2 % (0-4); Lymphocytes # 0.6 K/mcL (0.6-4.6); Lymphocytes % 9.1 %; Mean Corpuscular HGB Conc 33.3 g/dL (31.6-35.5); Mean Corpuscular Hemoglobin 29.9 pg (28.0-33.3); Mean Corpuscular Volume 89.8 fL (83.0-100.0); Mean Platelet Volume 11.3 fL (9.4-12.4); Monocytes # 0.6 K/mcL (0.0-1.3); Monocytes % 9.4 %; Neutrophils # 4.9 K/mcL (1.6-8.9); Platelet Count 159 K/mcL (140-400); Red Blood Count 4.71 M/mcL (3.82-4.97); Red Cell Distribution Width 13.4 % (11.5-14.5); Segmented Neutrophils % 80.4 %
[2017-09-08 08:19] LABS: BUN/Creatinine Ratio 15 (6-26); Blood Urea Nitrogen 11 mg/dL (8-23); Calcium 8.9 mg/dL (8.6-10.3); Carbon Dioxide 24 mEq/L (23-29); Chloride 105 mEq/L (98-107); Glucose 114 mg/dL (70-105); Osmolality,Calculated 288 (280-300); Potassium 3.7 mEq/L (3.5-5.1); Sodium 139 mEq/L (136-145); eGFR For African Americans > 60 (> 60); eGFR For Non-African Americans > 60 (> 60)
[2017-09-08] MEDS: Metoprolol XL (24 HR) Succ 50 MG TAB.ER.24H PO SCH (08:31)
[2017-09-08] MEDS ORDERED: ULORIC 40MG PO SCH (09:00)
[2017-09-08] MEDS ORDERED: amLODIPine 5 MG TABLET PO SCH ×2 (09:00)
[2017-09-08] MEDS ORDERED: [UNRECOGNIZED DRUG - OTHER] PO SCH (09:00)
[2017-09-08] MEDS ORDERED: PROMACTA 50 MG PO SCH ×2 (09:00)
[2017-09-08] MEDS ORDERED: Bumetanide 1 MG TABLET PO SCH (09:00)
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
[2017-09-08] MEDS: Budesonide/Formoterol 160/4.5 MDI IH SCH (09:32)
--- NOTE | 2017-09-08 09:33 | Discharge Summary ---
Date of Encounter: 09/08/17 Time of Encounter: 08:55 - Discharge Diagnosis (1) Bronchitis Priority: Primary Status: Acute (2) COPD exacerbation Priority: Secondary Status: Acute (3) Hypokalemia Priority: Secondary Status: Resolved Hospital course: Ms. Deleon is a 82 year old female who came to emergency room stating she had onset of cough and weakness on September 03. The cough was minimally productive. She reports having fever 102 at home. She had poor oral intake and felt increasingly weak. She was evaluated in emergency room and felt to have exacerbation of COPD with bronchitis. She was admitted to [facility] floor for ongoing care needs. Initial orders were written by the emergency room physician. I saw her on September 08 and performed the history physical and discharge. She was given IV Zithromax in emergency room. When I saw her she felt improved and stable for discharge home. She denied vomiting or diarrhea or abdominal pain. She will continue with antibiotic and probiotic with prednisone for 3 additional days at home. Her potassium normalized at 3.7 by day of discharge. I encouraged her to use KCl as prescribed instead of every other day as she admitted using it at home. She will follow with her PCP Dr. Ash within 1 week. - Time Spent with Patient Total time spent providing and/or coordinating discharge services: - Discharge Medications Prescriptions: Cefuroxime PO [Ceftin] 500 mg PO Q12HR #6 tablet Azithromycin [Zithromax] 250 mg PO DAILY #3 tablet Lactobacillus [Culturelle] 1 each PO BID #6 cap.sprink predniSONE [PredniSONE] 10 mg PO BIDWM #6 tablet Home Medications: Levothyroxine [Synthroid] 75 mcg PO DAILY 01/29/15 [History] Omeprazole [PriLOSEC] 20 mg PO DAILY PRN 01/29/15 [History] Potassium Chloride 10 meq PO BID 01/29/15 [History] amLODIPine [Norvasc] 10 mg PO DAILY 12/07/15 [History] Metoprolol XL (24 HR) Succ [Toprol Xl] 50 mg PO BID 07/19/16 [History] Budesonide/Formoterol 160/4.5 [Symbicort 160/4.5] 2 puff IH BID 09/17/16 [ History] Oxygen 2 l .ROUTE AD 09/17/16 [History] Cyclobenzaprine HCl 5 mg PO BID PRN #30 tablet 10/18/16 [Rx] Acetaminophen w/Cod 300-30 mg [Tylenol w/Codeine #3] 1 tab PO Q6HR PRN #56 tablet 12/05/16 [Rx] Bumetanide [Bumex] 0.5 mg PO Q48H #0 01/11/17 [Rx] Loratadine [Claritin] 10 mg PO DAILY PRN #0 01/11/17 [Rx] Febuxostat [Uloric] 40 mg PO DAILY #30 04/03/17 [Rx] Eltrombopag Olamine [Promacta] 50 mg PO DAILY #30 tablet 08/03/17 [Rx] Azithromycin [Zithromax] 250 mg PO DAILY #3 tablet 09/08/17 [Rx] Cefuroxime PO [Ceftin] 500 mg PO Q12HR #6 tablet 09/08/17 [Rx] Lactobacillus [Culturelle] 1 each PO BID #6 cap.sprink 09/08/17 [Rx] predniSONE [PredniSONE] 10 mg PO BIDWM #6 tablet 09/08/17 [Rx] Allergies/Adverse Reactions: 3 Allergy/AdvReac Type Severity Reaction Status Date / Time Sulfa (Sulfonamide Allergy Mild Hives Verified 09/07/17 14:46 Antibiotics) hydrocodone AdvReac Mild Nausea Verified 09/07/17 14:46 Oxycodone AdvReac Mild Nausea Verified 09/07/17 14:46 aspirin AdvReac See Verified 09/07/17 12:05 Comments Date of admission: 09/07/17 14:43 Primary care physician: Casey Ash DO - Constitutional Vitals: Temp Pulse Resp BP Pulse Ox 98.1 F 82 18 147/75 92 09/08/17 06:25 09/08/17 06:25 09/08/17 06:25 09/08/17 06:25 09/08/17 06:25 - Patient Status Disposition: Home, Self-Care Condition: Fair Overall status at discharge: patient is progressing back to baseline - Discharge Instructions Follow Up With: Casey Ash DO [Primary Care Provider] - 1 week - Diet and Activity Activity: resume usual activities as tolerated Diet: advance to your usual diet
== END 2017-09-08 10:37 | disposition home or self-care (01) ==
LOC: INPPIK 12:04 → EMEROOPIK 12:04 → INPPIK 15:20
PROVIDERS: ADMIT Internal Medicine; ATTEND Internal Medicine

== ENCOUNTER 2018-09-28 11:48 | Observation (INO) ==
--- NOTE | 2018-09-28 12:08 | Emergency Department Note ---
Disposition Clinical Impression: Chest pain, Hypokalemia Disposition: Admitted As Inpatient Condition: Fair Referrals: NONE,PCP [Non-Partnered Physician] - Forms: ED Satisfaction Letter Time of Disposition: 12:53 ( will place in observation) Chest Pain HPI - General Chief Complaint: ED Chest Pain Stated Complaint: cp, hx afib, feels like galloping, constipation Time Seen by Provider: 09/28/18 12:06 Source: patient, family Mode of arrival: wheelchair Limitations: no limitations Vital Signs Reviewed: Yes Nursing Notes Reviewed: Yes - History of Present Illness HPI Narrative: 83-year-old female who presented to the emergency department via private car, after patient was discharged from the custodial just this morning at 10 AM. She reports that prior to discharge she was having associated chest pain. And she has also had some problems with constipation. She states that the reason she was discharged from the custodial, is because her insurance ran out. Patient has had prior history of a CVA, has A. fib, and has a feeding tube. Patient is also complaining of pain in her rectum and complaints of constipati on. Pt complaint: chest pain Duration: intermittent Onset: during rest Severity scale (1-10): 5 Quality: sharp Pain Radiation: none Improves with: nothing Worsens with: exertion Context: recent illness Associated symptoms: Reports: nausea Treatments prior to arrival chest pain: none - Related Data On Oral Contraceptives: No Home Medications Medication Instructions Recorded Confirmed Allopurinol [Zyloprim] 300 mg GTUBE MOWEFR 08/15/18 08/16/18 Amlodipine Besylate 10 mg GTUBE DAILY 08/15/18 08/16/18 Atorvastatin [Lipitor] 40 mg GTUBE HS 08/15/18 08/16/18 Budesonide/Formoterol 160/4.5 2 puff IH BIDR 08/15/18 08/16/18 [Symbicort 160/4.5] Clopidogrel [Plavix] 75 mg GTUBE DAILY 08/15/18 08/16/18 Colchicine [Colcrys] 0.6 mg GTUBE MOWEFR 08/15/18 08/16/18 Docusate [Colace] 100 mg GTUBE BID 08/15/18 08/16/18 Ipratropium/Albuterol Neb [Duoneb] 3 ml IH Q6HR 08/15/18 08/16/18 Levothyroxine Sodium [Levoxyl] 75 mcg GTUBE DAILY 08/15/18 08/16/18 Loratadine [Claritin] 10 mg GTUBE DAILY 08/15/18 08/16/18 Metoprolol Tartrate [Lopressor] 50 mg GTUBE BID 08/15/18 08/16/18 Ondansetron HCl [Zofran] 4 mg GTUBE Q8HR PRN 08/15/18 08/16/18 Oxybutynin Chloride [Ditropan Xl] 5 mg GTUBE DAILY 08/15/18 08/16/18 Polyethylene Glycol 3350 [MiraLAX] 17 gm GTUBE DAILY PRN 08/15/18 08/16/18 Potassium Chloride [Klor-Con 10] 10 meq GTUBE DAILY 08/15/18 08/16/18 Warfarin [Coumadin] 5 mg GTUBE MOWEFR 08/15/18 08/16/18 Warfarin [Coumadin] 5.5 mg GTUBE SUTUTHSA 08/15/18 08/16/18 hydroCHLOROthiazide 25 mg GTUBE BID 08/15/18 08/16/18 [Hydrochlorothiazide] Omeprazole [PriLOSEC] 20 mg PO DAILY 08/16/18 08/16/18 Previous Rx's Medication Instructions Recorded Fosfomycin Tromethamine [Monurol] 3 gm PO Q48H #2 packet 08/19/18 levoFLOXacin [Levaquin] 500 mg GTUBE DAILY #10 tablet 08/19/18 Allergies Allergy/AdvReac Type Severity Reaction Status Date / Time Sulfa (Sulfonamide Allergy Mild Hives Verified 09/28/18 11:52 Antibiotics) hydrocodone AdvReac Mild Nausea Verified 09/28/18 11:52 oxycodone [Oxycodone] AdvReac Mild Nausea Verified 09/28/18 11:52 aspirin AdvReac See Verified 09/28/18 11:52 Comments All systems ED: reviewed and negative except as stated. Constitutional: Denies: fever, chills, weakness, weight change Eyes: Denies: eye pain, eye discharge, vision change ENT ED: Denies: ear pain, throat pain, dental pain, hearing loss, epistaxis, co ngestion, dysphagia Cardiovascular: Reports: chest pain. Denies: palpitations, dyspnea on exertion, edema, syncope Respiratory: Denies: cough, dyspnea, wheezes, hemoptysis, stridor Gastrointestinal: Denies: abdominal pain, nausea, vomiting, diarrhea, constipation, hematemesis, melena, hematochezia Genitourinary: Denies: dysuria, frequency, hematuria, discharge Musculoskeletal: Denies: back pain, neck pain, arthralgia, myalgia Integumentary: Denies: rash, abrasion, lesions Neurological: Denies: headache, weakness, numbness, paresthesias, confusion, abnormal gait, vertigo Psychiatric: Denies: anxiety, depression, suicidal thoughts, homicidal thoughts, auditory hallucinations, visual hallucinations Endocrine: Denies: fatigue Hematological/Lymphatic: Denies: easy bleeding, easy bruising Allergic/Immunologic: Denies: facial swelling, urticaria Chest Pain PMH - Past Medical History Medical history: Reports: atrial fibrillation, CVA, GERD, hypertension, myocardial infarction, thyroid disease, other Surgical history: Reports: angioplasty/stent, cholecystectomy, hysterectomy, other Psychiatric history: Reports: no psych history - Social History Smoking Status: Never smoker Alcohol use: Reports: none Drug use: Reports: none Physical Exam - General Limitations: no limitations General appearance: alert - Head Head exam: atraumatic, normocephalic, normal inspection - Eye Eye exam: Present: normal appearance, PERRL, EOMI - Expanded Eye Exam Pupils: Left: reactive - ENT ENT exam: normal exam, normal oropharynx, mucous membranes moist - Expanded ENT Exam External ear exam: Present: normal external inspection Mouth exam: Present: normal external inspection Teeth exam: Present: normal inspection Throat exam: Present: normal inspection - Neck Neck exam: Present: normal inspection, full ROM, trachea midline - Chest Chest inspection: Present: normal inspection, symmetric chest wall rise - Respiratory Respiratory exam: Present: normal lung sounds bilaterally - Cardiovascular Cardiovascular exam: Present: regular rate, normal rhythm, normal heart sounds - Abdominal Exam Abdominal exam: Present: soft, Non-Tender, other (g tube in place, no guarding or ebound noted). Absent: tenderness, distention, guarding, rebound, rigidity - Rectal Exam Rectal exam: Present: normal rectal tone, hemorrhoids, other (Soft stool, patient may have a internal hemorrhoid on exam, I am not certain was causing all her pain. There was no gross blood brown stool on exam) - Extremities Exam Extremities exam: Present: normal inspection, full ROM. Absent: tenderness, pedal edema - Expanded Upper Extremity Exam Shoulder exam: Present: normal inspection, full ROM Arm exam: Present: normal inspection, full ROM Elbow exam: Present: normal inspection, full ROM Forearm/Wrist exam: Present: normal inspection, full ROM Hand exam: Present: normal inspection, full ROM Vascular exam: Normal: capillary refill, radial pulse - Expanded Lower Extremity Exam Hip/Pelvis exam: Present: normal inspection, full ROM Upper leg exam: Present: normal inspection, full ROM Knee exam: Present: normal inspection, full ROM Lower leg exam: Present: normal inspection, full ROM Ankle exam: Present: normal inspection, full ROM Foot/toe exam: Present: normal inspection, full ROM Neurovascular/Tendon exam: Absent: motor deficit, sensory deficit, tendon de ficit - Back Exam Back exam: Present: normal inspection, full ROM. Absent: tenderness - Neurological Exam Neurological exam: Present: alert, oriented X3 - Expanded Neurological Exam Patient oriented to: Present: person, place, time Coma Scale Eye Opening: Spontaneous Coma Scale Motor Response: Obeys Commands Coma Scale Verbal Response: Oriented Coma Scale Total: 15 - Psychiatric Psychiatric exam: Present: normal affect, normal mood - Skin Skin exam: Present: warm, dry, intact, normal color Course Vital Signs Temperature 98.9 F 09/28/18 11:52 Pulse Rate 65 09/28/18 11:52 Respiratory Rate 18 09/28/18 11:52 Blood Pressure 156/68 09/28/18 11:52 O2 Sat by Pulse Oximetry 96 09/28/18 11:52 Temperature 98.9 F 09/28/18 11:52 Pulse Rate 65 09/28/18 12:30 Respiratory Rate 18 09/28/18 12:30 Blood Pressure 123/85 09/28/18 12:30 O2 Sat by Pulse Oximetry 96 09/28/18 12:30 Oxygen Delivery Oxygen Delivery Room Air Chest Pain - Lab Data Result diagrams: 09/28/18 12:08 09/28/18 12:08 Lab Results 09/28/18 09/28/18 09/28/18 Range/Units 12:08 12:08 12:08 WBC 9.5 (4.3-11.1) K/mcL RBC 5.24 H (3.82-4.97) M/mcL Hgb 15.1 (11.5-15.4) g/dL Hct 45.5 H (35.3-44.9) % MCV 86.8 (83.0-100.0) fL MCH 28.8 (28.0-33.3) pg MCHC 33.2 (31.6-35.5) g/dL RDW 13.8 (11.5-14.5) % Plt Count 119 L (140-400) K/mcL MPV 12.3 (9.4-12.4) fL Immature Gran % 0.4 (0-4) % Seg Neutrophils % 74.4 % Lymphocytes % 13.7 % Monocytes % 10.3 % Eosinophils % 0.7 % Basophils % 0.5 % Neutrophils # 7.1 (1.6-8.9) K/mcL Lymphocytes # 1.3 (0.6-4.6) K/mcL Monocytes # 1.0 (0.0-1.3) K/mcL Eosinophils # 0.1 (0.0-0.6) K/mcL Basophils # 0.1 (0.0-0.2) K/mcL PT 38.7 H (9.4-12.1) Seconds INR 3.4 APTT 37.4 H (26.0-36.0) Seconds Sodium (136-145) mEq/L Potassium (3.5-5.1) mEq/L Chloride (98-107) mEq/L Carbon Dioxide (23-29) mEq/L BUN (8-23) mg/dL Creatinine (0.60-1.20) mg/dL Est GFR ( Amer) (> 60) Est GFR (Non-Af Amer) (> 60) BUN/Creatinine Ratio (6-26) Glucose (70-105) mg/dL Calculated Osmolality (280-300) Calcium (8.6-10.3) mg/dL Troponin I (< 0.04) ng/mL B-Natriuretic Peptide 257 H (Less than 100) pg/mL 09/28/18 Range/Units 12:08 WBC (4.3-11.1) K/mcL RBC (3.82-4.97) M/mcL Hgb (11.5-15.4) g/dL Hct (35.3-44.9) % MCV (83.0-100.0) fL MCH (28.0-33.3) pg MCHC (31.6-35.5) g/dL RDW (11.5-14.5) % Plt Count (140-400) K/mcL MPV (9.4-12.4) fL Immature Gran % (0-4) % Seg Neutrophils % % Lymphocytes % % Monocytes % % Eosinophils % % Basophils % % Neutrophils # (1.6-8.9) K/mcL Lymphocytes # (0.6-4.6) K/mcL Monocytes # (0.0-1.3) K/mcL Eosinophils # (0.0-0.6) K/mcL Basophils # (0.0-0.2) K/mcL PT (9.4-12.1) Seconds INR APTT (26.0-36.0) Seconds Sodium 134 L (136-145) mEq/L Potassium 2.8 L (3.5-5.1) mEq/L Chloride 93 L (98-107) mEq/L Carbon Dioxide 31 H (23-29) mEq/L BUN 19 (8-23) mg/dL Creatinine 0.83 (0.60-1.20) mg/dL Est GFR ( Amer) > 60 (> 60) Est GFR (Non-Af Amer) > 60 (> 60) BUN/Creatinine Ratio 23 (6-26) Glucose 131 H (70-105) mg/dL Calculated Osmolality 282 (280-300) Calcium 9.3 (8.6-10.3) mg/dL Troponin I < 0.03 (< 0.04) ng/mL B-Natriuretic Peptide (Less than 100) pg/mL
[2018-09-28 12:17] LABS: Basophils # 0.1 K/mcL (0.0-0.2); Basophils % 0.5 %; Eosinophils # 0.1 K/mcL (0.0-0.6); Eosinophils % 0.7 %; Hematocrit 45.5 % (35.3-44.9); Hemoglobin 15.1 g/dL (11.5-15.4); Immature Granulocytes % 0.4 % (0-4); Lymphocytes # 1.3 K/mcL (0.6-4.6); Lymphocytes % 13.7 %; Mean Corpuscular HGB Conc 33.2 g/dL (31.6-35.5); Mean Corpuscular Hemoglobin 28.8 pg (28.0-33.3); Mean Corpuscular Volume 86.8 fL (83.0-100.0); Mean Platelet Volume 12.3 fL (9.4-12.4); Monocytes % 10.3 %; Neutrophils # 7.1 K/mcL (1.6-8.9); Platelet Count 119 K/mcL (140-400); Red Blood Count 5.24 M/mcL (3.82-4.97); Red Cell Distribution Width 13.8 % (11.5-14.5); Segmented Neutrophils % 74.4 %
[2018-09-28 12:24] LABS: INR 3.4; Prothrombin Time 38.7 Seconds (9.4-12.1)
[2018-09-28 12:27] LABS: Activated Partial Thrombo Time 37.4 Seconds (26.0-36.0)
[2018-09-28 12:33] LABS: BUN/Creatinine Ratio 23 (6-26); Blood Urea Nitrogen 19 mg/dL (8-23); Calcium 9.3 mg/dL (8.6-10.3); Carbon Dioxide 31 mEq/L (23-29); Chloride 93 mEq/L (98-107); Glucose 131 mg/dL (70-105); Osmolality,Calculated 282 (280-300); Potassium 2.8 mEq/L (3.5-5.1); Sodium 134 mEq/L (136-145); eGFR For Non-African Americans > 60 (> 60)
[2018-09-28 12:36] LABS: Troponin I < 0.03 ng/mL (< 0.04)
[2018-09-28] MEDS ORDERED: *HR* Morphine 2 MG/ML SYRINGE IVP ONE (12:39)
[2018-09-28] MEDS ORDERED: Ondansetron 4 MG/2 ML VIAL IVP ONE (12:40)
[2018-09-28] MEDS ORDERED: Milk and Molasses Enema 200 ML RC ONE ×2 (12:54→13:14)
[2018-09-28] MEDS ORDERED: Naloxone 0.4 MG/ML INJ IVP PRN (13:14)
[2018-09-28] MEDS ORDERED: FOSFOMYCIN TROMETHAMINE 3 GM PO SCH (13:14)
[2018-09-28] MEDS ORDERED: Potassium Chloride Elixir 20 MEQ/15 ML UDC PO ONE (13:14)
[2018-09-28] MEDS ORDERED: Ipratropium/Albuterol Neb 3 ML IH SCH (16:00)
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
[2018-09-28 17:16] LABS: Magnesium 2.2 mg/dL (1.6-2.6)
[2018-09-28] MEDS ORDERED: 0.9 % Sodium Chloride 1,000 ML ONE (17:16)
[2018-09-28] MEDS: Acetaminophen 325 MG TABLET PO PRN (17:31)
[2018-09-28] MEDS: Docusate Oral Soln 100 MG/10 ML UDC GTUBE SCH (20:20)
[2018-09-28] MEDS: Ammonium Lactate 30 APPL/225 GM BOTTLE TP SCH (20:26)
[2018-09-28] MEDS ORDERED: hydroCHLOROthiazide 25 MG TABLET GTUBE SCH (21:00)
[2018-09-28] MEDS: Budesonide/Formoterol 160/4.5 1 PUFF INH IH SCH (21:40)
[2018-09-29] MEDS: Acetaminophen 325 MG TABLET PO PRN ×3 (02:54→20:50)
[2018-09-29 05:41] LABS: Basophils # 0.1 K/mcL (0.0-0.2); Basophils % 0.8 %; Eosinophils # 0.1 K/mcL (0.0-0.6); Eosinophils % 1.1 %; Hematocrit 42.5 % (35.3-44.9); Immature Granulocytes % 0.3 % (0-4); Lymphocytes # 1.3 K/mcL (0.6-4.6); Lymphocytes % 16.1 %; Mean Corpuscular HGB Conc 32.9 g/dL (31.6-35.5); Mean Platelet Volume 11.6 fL (9.4-12.4); Monocytes # 0.8 K/mcL (0.0-1.3); Monocytes % 10.5 %; Neutrophils # 5.7 K/mcL (1.6-8.9); Red Blood Count 4.83 M/mcL (3.82-4.97); Segmented Neutrophils % 71.2 %
[2018-09-29 05:48] LABS: INR 2.8; Prothrombin Time 31.6 Seconds (9.4-12.1)
[2018-09-29 05:49] LABS: Platelet Count 90 K/mcL (140-400)
[2018-09-29 06:07] LABS: BUN/Creatinine Ratio 22 (6-26); Blood Urea Nitrogen 17 mg/dL (8-23); Calcium 8.7 mg/dL (8.6-10.3); Carbon Dioxide 28 mEq/L (23-29); Chloride 98 mEq/L (98-107); Glucose 101 mg/dL (70-105); Osmolality,Calculated 278 (280-300); Potassium 3.3 mEq/L (3.5-5.1); Sodium 133 mEq/L (136-145); eGFR For Non-African Americans > 60 (> 60)
[2018-09-29 06:55] LABS: Bilirubin,Urine Negative (Negative); Blood,Urine Negative (Negative); Clarity,Urine Cloudy (Clear); Color,Urine Yellow (Yellow); Glucose,Urine (UA) Normal (Normal); Ketones,Urine Negative (Negative); Leukocyte Esterase,Urine Trace (Negative); Nitrite,Urine Positive (Negative); PH,Urine 8.5 pH Units (5.0-8.0); Protein,Urine Negative (Neg-Trace); Specific Gravity,Urine 1.015 (1.010-1.025); Urobilinogen,Urine Normal (Normal)
[2018-09-29 07:08] LABS: RBC,Urine 0-3 per hpf (0-3)
[2018-09-29 07:09] LABS: Bacteria,Urine Many per hpf (None-Few); Squamous Epithelial Cell,Urine Moderate per lpf (None-Few)
[2018-09-29 07:10] LABS: Amorphous Sediment,Urine Few (Few)
[2018-09-29] MEDS ORDERED: Loratadine 10 MG TABLET GTUBE SCH (09:00)
[2018-09-29] MEDS: Docusate Oral Soln 100 MG/10 ML UDC GTUBE SCH ×2 (09:29→20:44)
[2018-09-29] MEDS: amLODIPine 5 MG TABLET GTUBE SCH (09:29)
[2018-09-29] MEDS: Ammonium Lactate 30 APPL/225 GM BOTTLE TP SCH ×2 (09:30→20:44)
[2018-09-29] MEDS: Budesonide/Formoterol 160/4.5 1 PUFF INH IH SCH ×2 (11:25→22:26)
--- NOTE | 2018-09-29 19:06 | Internal Med Progress Note ---
Date of Encounter: 09/29/18 Time of Encounter: 10:00 - Assessment and plan (1) Abdominal pain Current Visit: No Status: Acute Assessment and plan: September 29. Repeat Mariscal flush today with oral magnesium citrate for fecal impaction. Qualifiers: Abdominal location: lower abdomen, unspecified Qualified Code(s): R10.30 - Lower abdominal pain, unspecified (2) Hypokalemia Current Visit: Yes Status: Acute Assessment and plan: September 29. Potassium level increased to 3.3. Continue supplemental potassium. (3) Hypertension Current Visit: No Status: Chronic Assessment and plan: September 29. Continue Lopressor and withhold HCTZ. Qualifiers: Hypertension type: essential hypertension Qualified Code(s): I10 - Essential (primary) hypertension (4) Gout Current Visit: No Status: Acute Assessment and plan: September 29. Uric acid level was normal at 7.0. 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 Continue Synthroid Qualifiers: Hypothyroidism type: acquired Qualified Code(s): E03.9 - Hypothyroidism, unspecified (6) Atrial fibrillation Current Visit: Yes Status: Chronic Assessment and plan: September 29. INR decreased to 2.8. Resume Coumadin tomorrow. Qualifiers: Atrial fibrillation type: paroxysmal Qualified Code(s): I48.0 - Paroxysmal atrial fibrillation - Subjective Interval history: September 29. She stated there is slight improvement in her abdominal pain but no significant BM after the Mariscal flush yesterday. - Constitutional Vitals: Temp Pulse Resp BP Pulse Ox 97.8 F 65 16 140/67 94 09/29/18 18:47 09/29/18 18:47 09/29/18 18:47 09/29/18 18:47 09/29/18 18:47 Exam: She is sitting on the side of bed and appears in no acute distress. Her affect was flat and she seemed to have difficulty comprehending conversation with her at times. I reviewed her medications and lab results. Internal Medicine: Result - Labs CBC & Chem 7: 09/29/18 05:30 09/29/18 05:30 Labs: Short CBC 09/29/18 Range/Units 05:30 WBC 8.0 (4.3-11.1) K/mcL Hgb 14.0 (11.5-15.4) g/dL Hct 42.5 (35.3-44.9) % Plt Count 90 L (140-400) K/mcL Neutrophils # 5.7 (1.6-8.9) K/mcL BMP 09/29/18 05:30 Sodium 133 L Potassium 3.3 L Chloride 98 Carbon Dioxide 28 BUN 17 Creatinine 0.77 Glucose 101 Calcium 8.7 Urine 09/29/18 Range/Units 06:51 Urine Color Yellow (Yellow) Urine Clarity Cloudy A (Clear) Urine pH 8.5 H (5.0-8.0) pH Units Ur Specific [place] 1.015 (1.010-1.025) Urine Protein Negative (Neg-Trace) mg/dL Urine Glucose (UA) Normal (Normal) mg/dL - ABG Interpretation ABG results: PT/INR, D-dimer PT 31.6 Seconds (9.4-12.1) H 09/29/18 05:30 Consult Discharge Plan - Plan Referrals: Casey Ash DO [Primary Care Provider] - 1 week
[2018-09-30] MEDS: amLODIPine 5 MG TABLET GTUBE SCH (08:45)
[2018-09-30] MEDS: Docusate Oral Soln 100 MG/10 ML UDC GTUBE SCH ×3 (08:46→20:02)
--- NOTE | 2018-09-30 09:31 | Electrocardiograph Report ---
[place] [id number] Test Date: 2018-09-28 Pat Name: Minal Deleon Department: EDP-12 Room: [facility] Gender: F [employer]: : [id number] Requested By: Katina Siegel Order Number: [id number] Reading MD: Quinton Roman Measurements Intervals [place] Rate: 65 P: [place]: QRS: -60 QRSD: 164 T: 120 QT: 460 QTc: 479 Interpretive Statements ventricular paced rhythm Electronically Signed On 09-30-2018 9:29:19 EDT by Quinton Roman
[2018-09-30] MEDS: Budesonide/Formoterol 160/4.5 1 PUFF INH IH SCH ×2 (09:57→21:31)
[2018-09-30 10:53] LABS: Basophils % 0.4 %; Eosinophils % 0.2 %; Hemoglobin 14.4 g/dL (11.5-15.4); Immature Granulocytes % 0.4 % (0-4); Lymphocytes % 8.9 %; Mean Corpuscular HGB Conc 32.7 g/dL (31.6-35.5); Mean Corpuscular Hemoglobin 28.9 pg (28.0-33.3); Mean Corpuscular Volume 88.4 fL (83.0-100.0); Mean Platelet Volume 12.3 fL (9.4-12.4); Monocytes # 0.8 K/mcL (0.0-1.3); Monocytes % 7.5 %; Neutrophils # 8.8 K/mcL (1.6-8.9); Platelet Count 94 K/mcL (140-400); Red Blood Count 4.98 M/mcL (3.82-4.97); Red Cell Distribution Width 14.5 % (11.5-14.5); Segmented Neutrophils % 82.6 %
[2018-09-30 11:17] LABS: BUN/Creatinine Ratio 23 (6-26); Blood Urea Nitrogen 18 mg/dL (8-23); Calcium 8.9 mg/dL (8.6-10.3); Carbon Dioxide 32 mEq/L (23-29); Chloride 98 mEq/L (98-107); Glucose 109 mg/dL (70-105); Osmolality,Calculated 286 (280-300); Potassium 2.8 mEq/L (3.5-5.1); Sodium 137 mEq/L (136-145); eGFR For Non-African Americans > 60 (> 60)
[2018-09-30] MEDS ORDERED: Colchicine 0.6 MG TABLET PO SCH (12:46)
[2018-09-30] MEDS: ALPRAZolam 0.25 MG TABLET PO PRN ×2 (15:33→22:26)
[2018-09-30] MEDS: Ammonium Lactate 30 APPL/225 GM BOTTLE TP SCH ×2 (15:34→20:03)
[2018-09-30] MEDS ORDERED: Bisacodyl 10 MG RECTAL SUPPOSITORY RC ONE (15:45)
[2018-09-30] MEDS ORDERED: *HR* Warfarin 5 MG TABLET PO SCH (18:00)
--- NOTE | 2018-09-30 18:38 | Internal Med Progress Note ---
Date of Encounter: 09/30/18 Time of Encounter: 10:00 - Assessment and plan (1) Abdominal pain Current Visit: No Status: Acute Assessment and plan: September 29. Repeat Mariscal flush today with oral magnesium citrate for fecal impaction. September 30. Continue bowel cleansing with magnesium citrate and oil retention enema. Dulcolax suppository has been given also. Qualifiers: Abdominal location: lower abdomen, unspecified Qualified Code(s): R10.30 - Lower abdominal pain, unspecified (2) Hypokalemia Current Visit: Yes Status: Acute Assessment and plan: September 29. Potassium level increased to 3.3. Continue supplemental potassium. September 30. Potassium level is decreased to 2.8. Continue IV and oral supplementation. Recheck labs in a.m. (3) Hypertension Current Visit: No Status: Chronic Assessment and plan: September 29. Continue Lopressor and withhold HCTZ. Qualifiers: Hypertension type: essential hypertension Qualified Code(s): I10 - Essential (primary) hypertension (4) Gout Current Visit: No Status: Acute Assessment and plan: September 29. Uric acid level was normal at 7.0. 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 Continue Synthroid Qualifiers: Hypothyroidism type: acquired Qualified Code(s): E03.9 - Hypothyroidism, unspecified (6) Atrial fibrillation Current Visit: Yes Status: Chronic Assessment and plan: September 29. INR decreased to 2.8. Resume Coumadin tomorrow. September 30. Restart Coumadin today. Qualifiers: Atrial fibrillation type: paroxysmal Qualified Code(s): I48.0 - Paroxysmal atrial fibrillation - Subjective Interval history: September 29. She stated there is slight improvement in her abdominal pain but no significant BM after the Mariscal flush yesterday. September 30. She has had significant loose stool output. She reports ongoing low er abdominal discomfort. - Constitutional Vitals: Temp Pulse Resp BP Pulse Ox 98.8 F 64 17 129/66 94 09/30/18 18:20 09/30/18 18:20 09/30/18 18:20 09/30/18 18:20 09/30/18 18:20 Exam: She is lying in bed and appears in no acute distress. She states she does not want to go home until she feels further improved. I reviewed her medications and lab results. Internal Medicine: Result - Labs CBC & Chem 7: 09/30/18 10:35 09/30/18 10:35 Labs: Short CBC 09/30/18 Range/Units 10:35 WBC 10.7 (4.3-11.1) K/mcL Hgb 14.4 (11.5-15.4) g/dL Hct 44.0 (35.3-44.9) % Plt Count 94 L (140-400) K/mcL Neutrophils # 8.8 (1.6-8.9) K/mcL BMP 09/30/18 10:35 Sodium 137 Potassium 2.8 L Chloride 98 Carbon Dioxide 32 H BUN 18 Creatinine 0.78 Glucose 109 H Calcium 8.9 - ABG Interpretation ABG results: PT/INR, D-dimer PT 31.6 Seconds (9.4-12.1) H 09/29/18 05:30 Consult Discharge Plan - Plan Referrals: Casey Ash DO [Primary Care Provider] - 1 week
[2018-10-01] MEDS: Docusate Oral Soln 100 MG/10 ML UDC GTUBE SCH (08:25)
[2018-10-01] MEDS: amLODIPine 5 MG TABLET GTUBE SCH (08:26)
[2018-10-01] MEDS: Ammonium Lactate 30 APPL/225 GM BOTTLE TP SCH ×2 (08:39→08:57)
[2018-10-01 09:08] LABS: Basophils % 0.5 %; Eosinophils # 0.1 K/mcL (0.0-0.6); Eosinophils % 0.7 %; Hematocrit 45.5 % (35.3-44.9); Hemoglobin 14.7 g/dL (11.5-15.4); Immature Granulocytes % 0.3 % (0-4); Lymphocytes # 1.3 K/mcL (0.6-4.6); Mean Corpuscular HGB Conc 32.3 g/dL (31.6-35.5); Mean Corpuscular Hemoglobin 28.8 pg (28.0-33.3); Mean Corpuscular Volume 89.2 fL (83.0-100.0); Mean Platelet Volume 12.3 fL (9.4-12.4); Monocytes # 0.6 K/mcL (0.0-1.3); Monocytes % 8.5 %; Neutrophils # 5.4 K/mcL (1.6-8.9); Red Cell Distribution Width 14.6 % (11.5-14.5)
[2018-10-01 09:09] LABS: Platelet Count 90 K/mcL (140-400)
[2018-10-01 10:20] VITALS: BP 114/72
[2018-10-01] MEDS: Budesonide/Formoterol 160/4.5 1 PUFF INH IH SCH (10:47)
[2018-10-01 11:16] LABS: Alanine Aminotransferase 27 Units/L (7-52); Albumin 3.1 g/dL (3.5-5.7); Alkaline Phosphatase 81 Units/L (34-104); Aspartate Amino Transferase 28 Units/L (13-39); BUN/Creatinine Ratio 20 (6-26); Bilirubin,Total 0.9 mg/dL (0.3-1.0); Blood Urea Nitrogen 15 mg/dL (8-23); Carbon Dioxide 29 mEq/L (23-29); Chloride 104 mEq/L (98-107); Glucose 147 mg/dL (70-105); Magnesium 2.8 mg/dL (1.6-2.6); Osmolality,Calculated 292 (280-300); Potassium 4.7 mEq/L (3.5-5.1); Sodium 139 mEq/L (136-145); Total Protein 6.1 g/dL (6.4-8.9); eGFR For Non-African Americans > 60 (> 60)
--- NOTE | 2018-10-01 11:44 | Discharge Summary ---
Orders not resulted at time of discharge: Pending orders 09/29/18 06:51 Culture,Urine [RM] Routine Date of Encounter: 10/01/18 Time of Encounter: 11:35 - Discharge Diagnosis (1) Abdominal pain Priority: Primary Status: Acute Qualifiers: Abdominal location: lower abdomen, unspecified Qualified Code(s): R10.30 - Lower abdominal pain, unspecified (2) Hypokalemia Priority: Secondary Status: Resolved (3) Hypertension Priority: Secondary Status: Chronic Qualifiers: Hypertension type: essential hypertension Qualified Code(s): I10 - Essential (primary) hypertension (4) Gout Priority: Secondary Status: Acute Qualifiers: Gout site: multiple sites Gout etiology: other secondary cause Chronicity: acute Qualified Code(s): 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 Deleon is a 83 year old female who was discharged from [facility] earlier today. She was at home for approximately 2 hours and developed significant abdominal pain. The pain became more severe so she came to emergency room. Evaluation included CT of abdomen/pelvis which showed large amount of fecal material in the rectum with possible stercoral colitis. She was admitted to [facility] for ongoing care needs. Initial orders were written by the emergency room physician. I saw her on September 28 and performed the history and physical. She was given a Mariscal flush resulting in some but inadequate defecation. Oral magnesium citrate was given twice during her hospital stay. She was also given an oil retention enema and Dulcolax suppository. She had significant defecation on this regimen. She can continue scheduled MiraLAX as at home and use OTC MOM etc. as needed. Oxybutynin was discontinued. She had urinary retention requiring Norris catheter insertion. She will remain off oxybutynin at discharge. Urecholine will be given for 2 days to assist in bladder emptying. HCTZ was discontinued because of hypokalemia and borderline hypotension. Her potassium normalized after supplemental potassium by day of discharge. Her blood pressure remained borderline low so amlodipine will be held. She will continue metoprolol. She will remain off supplemental potassium also. Her PCP can monitor blood pressure and labs. She will be discharged home today and follow with her PCP Dr. Ash within 1 week. - Time Spent with Patient Total time spent providing and/or coordinating discharge services: - Discharge Medications Prescriptions: New Bethanechol [Urecholine] 12.5 mg PO TID #6 tablet Warfarin [Coumadin] 5 mg PO DAILY@1800 tablet Continue Omeprazole [PriLOSEC] 20 mg PO DAILY Polyethylene Glycol 3350 [MiraLAX] 17 gm GTUBE DAILY PRN PRN Reason: Constipation Ondansetron HCl [Zofran] 4 mg GTUBE Q8HR PRN PRN Reason: Nausea Levothyroxine Sodium [Levoxyl] 75 mcg GTUBE DAILY Ipratropium/Albuterol Neb [Duoneb] 3 ml IH Q6HR Docusate [Colace] 100 mg GTUBE BID Colchicine [Colcrys] 0.6 mg GTUBE MOWEFR Budesonide/Formoterol 160/4.5 [Symbicort 160/4.5] 2 puff IH BIDR Allopurinol [Zyloprim] 300 mg GTUBE MOWEFR Clopidogrel [Plavix] 75 mg GTUBE DAILY Atorvastatin [Lipitor] 40 mg GTUBE HS Metoprolol Tartrate [Lopressor] 50 mg GTUBE BID Discontinued levoFLOXacin [Levaquin] 500 mg GTUBE DAILY #10 tablet Fosfomycin Tromethamine [Monurol] 3 gm PO Q48H #2 packet hydroCHLOROthiazide [Hydrochlorothiazide] 25 mg GTUBE BID Oxybutynin Chloride [Ditropan Xl] 5 mg GTUBE DAILY Loratadine [Claritin] 10 mg GTUBE DAILY Amlodipine Besylate 10 mg GTUBE DAILY Warfarin [Coumadin] 5 mg GTUBE MOWEFR Warfarin [Coumadin] 5.5 mg GTUBE SUTUTHSA Potassium Chloride [Klor-Con 10] 10 meq GTUBE DAILY Home Medications: Allopurinol [Zyloprim] 300 mg GTUBE MOWEFR 08/15/18 [History] Atorvastatin [Lipitor] 40 mg GTUBE HS 08/15/18 [History] Budesonide/Formoterol 160/4.5 [Symbicort 160/4.5] 2 puff IH BIDR 08/15/18 [History] Clopidogrel [Plavix] 75 mg GTUBE DAILY 08/15/18 [History] Colchicine [Colcrys] 0.6 mg GTUBE MOWEFR 08/15/18 [History] Docusate [Colace] 100 mg GTUBE BID 08/15/18 [History] Ipratropium/Albuterol Neb [Duoneb] 3 ml IH Q6HR 08/15/18 [History] Levothyroxine Sodium [Levoxyl] 75 mcg GTUBE DAILY 08/15/18 [History] Metoprolol Tartrate [Lopressor] 50 mg GTUBE BID 08/15/18 [History] Ondansetron HCl [Zofran] 4 mg GTUBE Q8HR PRN 08/15/18 [History] Polyethylene Glycol 3350 [MiraLAX] 17 gm GTUBE DAILY PRN 08/15/18 [History] Omeprazole [PriLOSEC] 20 mg PO DAILY 08/16/18 [History] Bethanechol [Urecholine] 12.5 mg PO TID #6 tablet 10/01/18 [Rx] Warfarin [Coumadin] 5 mg PO DAILY@1800 tablet 10/01/18 [Rx] Allergies/Adverse Reactions: Allergy/AdvReac Type Severity Reaction Status Date / Time Sulfa (Sulfonamide Allergy Mild Hives Verified 09/28/18 11:52 Antibiotics) hydrocodone AdvReac Mild Nausea Verified 09/28/18 11:52 oxycodone [Oxycodone] AdvReac Mild Nausea Verified 09/28/18 11:52 aspirin AdvReac See Verified 09/28/18 11:52 Comments Date of admission: 09/28/18 13:11 Primary care physician: Casey Ash DO - Constitutional Vitals: Temp Pulse Resp BP Pulse Ox 98.1 F 65 16 114/72 93 10/01/18 10:18 10/01/18 10:18 10/01/18 10:18 10/01/18 10:18 10/01/18 10:18 - Patient Status Disposition: Home, Self-Care Condition: Fair - Discharge Instructions Follow Up With: Casey Ash DO [Primary Care Provider] - 1 week - Diet and Activity Activity: resume usual activities as tolerated Diet: advance to your usual diet
== END 2018-10-01 12:48 | disposition home or self-care (01) ==
LOC: EMEROOPIK 11:48 → INPPIK 11:48
PROVIDERS: ADMIT Internal Medicine; ATTEND Internal Medicine